=== PATIENT | female | born 1975 | race Caucasian/White ===

== ENCOUNTER 2017-02-28 18:07 | Emergency (ER) | payer MEDICAID ==
[~2017-02-28] VITALS: Ht 165.1 cm; Wt 74.8 kg
[2017-02-28] MEDS ORDERED: HYDROMORPHONE 1 MG/1 ML DISP.SYRIN IV ONE ×3 (18:30→21:00)
--- NOTE | 2017-02-28 18:30 | NUR ---
PATIENT BIB [facility] C/O LEFT LOWER LEG PAIN, S/P TRIP AND FALL WHILE HIKING [place]. PATIENT IS A/OX 4, CRYING IN PAIN. BREATHING EVEN AND UNLABORED. NO SOB. VITALS STABLE. SAFETY AND COMFORT MEASURES IN PLACE. AWAITING MD ORDERS.
[2017-02-28] MEDS ORDERED: HYDROMORPHONE 1 MG/1 ML DISP.SYRIN ONE ×3 (18:33→23:53)
--- NOTE | 2017-02-28 18:40 | NUR ---
PATIENT MEDICATED PER MD ORDERS .
--- NOTE | 2017-02-28 19:00 | NUR ---
DIABETES NURSE AT BEDSIDE.
--- NOTE | 2017-02-28 19:07 | NUR ---
SECOND DOSE OF DILAUDID ADMINISTERED S/P XRAY.
--- NOTE | 2017-02-28 19:15 | NUR ---
REPORT RECEIVED FROM ALEXANDER MUÑOZ FOR [facility].
--- NOTE | 2017-02-28 19:16 | NUR ---
REPORT GIVEN TO CLAUDIA MUNOZ FOR [facility].
[2017-02-28] MEDS ORDERED: HYDROMORPHONE INJ 2 MG/ML DISP.SYRIN ONE ×2 (19:24→20:58)
[2017-02-28] MEDS ORDERED: HYDROMORPHONE INJ 2 MG/ML DISP.SYRIN IV ONE (19:30)
--- NOTE | 2017-02-28 19:30 | NUR ---
AT BEDSIDE SPEAKING WITH PT.
[2017-02-28] MEDS ORDERED: PROPOFOL 0 ML ONE (19:54)
[2017-02-28] MEDS ORDERED: IV NS 0.9% 1,000 ML BAG IV ONE (20:00)
[2017-02-28] MEDS ORDERED: PROPOFOL 1,000 MG/100 ML BOTTLE IV ONE (20:00)
[2017-02-28] MEDS ORDERED: PROPOFOL 20 ML IV ONE (20:01)
[2017-02-28] MEDS ORDERED: FENTANYL PF 100MCG/2ML AMPUL ONE (20:08)
[2017-02-28 20:13] LABS: BASOPHILS # (AUTO) 0.5 /CMM (0.0-0.2); BASOPHILS % (AUTO) 3.1 % (0.0-2.0); EOSINOPHILS % (AUTO) 0.1 % (0.0-6.0); HEMATOCRIT 35 % (33-45); HEMOGLOBIN 12.2 g/dL (11.5-14.8); LYMPHOCYTES # (AUTO) 1.7 /CMM (0.8-4.8); MEAN CORPUSCULAR HEMOGLOBIN 30 PG (26.0-33.0); MEAN CORPUSCULAR HGB CONC 35 g/dl (31.0-36.0); MEAN CORPUSCULAR VOLUME 87 fL (82-100); MONOCYTES # (AUTO) 0.7 /CMM (0.1-1.30); MONOCYTES % (AUTO) 3.8 % (2.0-12.0); NEUTROPHILS # (AUTO) 14.5 /CMM (1.8-8.9); PLATELET COUNT (AUTO) 474 /CMM (150-450); RDW COEFFICIENT OF VARIATION 12.8 (11.5-15.0); RED BLOOD CELL COUNT(AUTO) 4.04 MIL/uL (4.0-5.2); WHITE BLOOD COUNT (AUTO) 17.4 K/uL (4.3-11.0)
--- NOTE | 2017-02-28 20:15 | NUR ---
DR CARABALLO AT BEDSIDE AONG WITH RT AND RN FOR MODERATE SEDATION. PRCEDURE TO SET TIB FIB FX. SEE MODERATE SEDATION NOTES.
[2017-02-28 20:31] LABS: CALCIUM, SERUM 8.5 mg/dL (8.5-10.1); CREATININE 0.7 mg/dL (0.6-1.3)
[2017-02-28 20:41] LABS: INR 0.96 (0.87-1.13)
--- NOTE | 2017-02-28 20:46 | NUR ---
PT TO XRAY VIA STRETCHER, VSS. PT AWAKE AND ALERT. RESP EVEN UNLABORED.
--- NOTE | 2017-02-28 20:55 | NUR ---
PT BACK FROM XRAY. Addendum: 02/28/17 at 2120 by LLANE VSS/RESP EVEN UNLABORED.
--- NOTE | 2017-02-28 21:12 | NUR ---
SPOKE WITH ALBERT EPRP. CASE ASSIGNED TO ROOSEVELT CARLISLE FOR CALL BACK
[2017-02-28 21:17] VITALS: BP 105/60
--- NOTE | 2017-02-28 21:19 | NUR ---
PT SPEAKING WITH FRIEND AT BEDSIDE. VSS, RESP EVEN UNLABORED.
[2017-02-28] MEDS ORDERED: PROPOFOL 200 MG/20 ML VIAL IV ONE ×2 (21:30)
[2017-02-28] MEDS ORDERED: FENTANYL PF 100MCG/2ML AMPUL IV ONE ×2 (21:30)
[2017-02-28 23:57] LABS: LYMPHOCYTES % (MANUAL) 11 % (16-48); MONOCYTES % (MANUAL) 7 % (0-11.0); NEUTROPHILS % (MANUAL) 82 (42-76)
[2017-03-01] MEDS ORDERED: HYDROMORPHONE 1 MG/1 ML DISP.SYRIN IV ONE
--- NOTE | 2017-03-01 00:02 | NUR ---
REPORT GIVEN TO CHELLY MUNOZ- [facility]./
--- NOTE | 2017-03-01 00:30 | NUR ---
REPORT GIVEN TO EMS FOR TRANSPORT TO [facility].
== END 2017-03-01 00:30 | disposition short-term general hospital (02) ==
LOC: ER 18:11
DX: S82.832A Other fracture of upper and lower end of left fibula, initial encounter for closed fracture (principal); S82.302A Unspecified fracture of lower end of left tibia, initial encounter for closed fracture; W01.0XXA Fall on same level from slipping, tripping and stumbling without subsequent striking against object, initial encounter; Y93.89 Activity, other specified; Y92.89 Other specified places as the place of occurrence of the external cause; Y99.8 Other external cause status
CPT/HCPCS: 27752; 36415; 73590 ×2; 80048; 84703; 85025; 85730; 87081; 96361; 96374; 96375; 96376; 99152; 99285; A4606; J1170 ×5; J2704; J3010; J7030; Z7610; J3490